=== PATIENT | male | born 1995 | race Caucasian/White ===

== ENCOUNTER 2022-04-22 21:32 | Emergency (ER) | payer BC, OTHER ==
[2022-04-22 21:45] VITALS: BP 129/73; PULSE 71; RESP 16; TEMP 98.6
[2022-04-22] MEDS ORDERED: DIPH,PERTUS(ACELL)TETVAC-LF 0.5 ML VIAL IM ONE (21:50)
[2022-04-22] MEDS ORDERED: LIDOCAINE 1% INJ 10MG/ML (5 ML VIAL-PF) SQ ONE (21:50)
--- NOTE | 2022-04-22 22:42 | ED ---
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 Denies pain, numbness, and tingling. Last tetanus unknown. - Related Data Previous Rx's Medication Instructions Recorded Amoxicillin/Potassium Clav 1 each PO Q12HR #20 tab 03/31/14 [Augmentin 875-125 Tablet] Allergies Allergy/AdvReac Type Severity Reaction Status Date / Time No Known Allergies Allergy Verified 04/22/22 21:42 Review of Systems ROS Statement: Those systems with pertinent positive or pertinent negative responses have been documented in the HPI. ROS Other: All systems not noted in ROS Statement are negative. Past Medical History Past Medical History: No Reported History History of Any Multi-Drug Resistant Organisms: None Reported Past Surgical History: No Surgical Hx Reported Past Psychological History: No Psychological Hx Reported Smoking Status: Never smoker Past Alcohol Use History: None Reported Past Drug Use History: None Reported General Exam Limitations: no limitations General appearance: alert, in no apparent distress Head exam: Present: atraumatic, normocephalic, normal inspection Respiratory exam: Present: normal lung sounds bilaterally. Absent: respiratory distress, wheezes, rales, rhonchi, stridor Cardiovascular Exam: Present: regular rate, normal rhythm, normal heart sounds. Absent: systolic murmur, diastolic murmur, rubs, gallop, clicks Extremities exam: Present: other (1 cm laceration over left proximal to middle forearm. Neurovascularly intact) Course Vital Signs 04/22/22 21:43 Temperature 98.6 F Pulse Rate 71 Respiratory 16 Rate Blood Pressure 129/73 O2 Sat by Pulse 99 Oximetry Procedures - Laceration Laceration #1 Consent Obtained: verbal consent Site: upper extremity (left forearm ) Description: linear Depth: simple, single layer Anesthetic Used: lidocaine 1% Anesthesia Technique: local infiltration Pre-repair: wound explored, irrigated extensively Type of Sutures: nylon Size of Sutures: 4-0 Number of Sutures: 3 Technique: simple, interrupted Patient Tolerated Procedure: well, no complications Medical Decision Making - Medical Decision Making This is a 26-year-old male who presents with laceration. Thorough history and examination were performed. There is 1 cm laceration over left proximal to mi ddle forearm. Neurovascularly intact. The wound was irrigated extensively. It was well approximated with 3 sutures. Patient tolerated procedure well with no, dictation. Tetanus updated. Wound c are education provided in detail. Patient to return for suture removal in 7-10 days. Return parameters discussed. Patient verbalizes understanding and is agreeable to this plan. Dr. Esquivel is my attending. Disposition Clinical Impression: Laceration Disposition: HOME SELF-CARE Condition: Good Instructions (If sedation given, give patient instructions): Care For Your Stitches (ED), Laceration (ED) Additional Instructions: Leave wound uncovered. Keep wound clean and dry. Wash with a mild soap. Take Tylenol or anti-inflammatories such as Motrin for pain. Follow-up with primary care provider in 1-2 days. Return for suture removal in 7-10 days. Report back to the emergency department if you experience new, concerning, or worsening symptoms. Is patient prescribed a controlled substance at d/c from ED?: No Referrals: Brayden Reyes MD [Primary Care Provider] - 1-2 days Time of Disposition: 22:42
== END 2022-04-22 22:49 | disposition home or self-care (01) ==
LOC: EC 21:32
DX: S51.812A Laceration without foreign body of left forearm, initial encounter (principal); Z23 Encounter for immunization; W27.8XXA Contact with other nonpowered hand tool, initial encounter
CPT/HCPCS: 99282; 90471; 12001; 90715; J2001